=== PATIENT | female | born 1975 | race Asian ===

== ENCOUNTER 2024-11-04 14:10 | Emergency (ER) | payer MEDICAID, SELFPAY ==
--- NOTE | ~2024-11-04 | US_ITS ---
CLINICAL HISTORY: RUQ pain --- Additional Notes or Special Instructions: look at GB, pancreas, liver, ducts US abdomen limited Comparison: None provided Findings: The visualized pancreas is normal. The liver is normal in size. There are 2 calcifications within the right hepatic lobe. There is no intrahepatic bile duct dilatation. The common duct is 4 mm in diameter. There are 2 gallbladder polyps measuring 3 mm and 4 mm. No cholelithiasis. No gallbladder wall thickening. The right kidney is 10.7 cm in length. No ascites. IMPRESSION: 1. No acute process. 2. Gallbladder polyps. This document has been electronically signed by: Sheba Villanueva MD on 11/04/2024 16:01:24
--- NOTE | ~2024-11-04 | CT_ITS ---
CLINICAL HISTORY: R low chest pain, worse w inspiration CT chest without contrast Comparison: None provided Findings: The heart size is normal. The visualized thyroid and mediastinum are unremarkable. 15 mm calcified soft tissue density focus within the upper inner quadrant of the left breast. Calcified 6.4 mm focus within the right upper breast. No consolidation or effusion. Visualized portions of the upper abdomen demonstrate calcification in the right hepatic lobe posteriorly. No acute fractures. IMPRESSION: 1. No acute process. 2. Bilateral calcified breast lesions which could be further assessed with mammography, If clinically indicated. This document has been electronically signed by: Sheba Villanueva MD on 11/04/2024 19:43:21
--- NOTE | 2024-11-04 14:14 | ED_ITS ---
HPI - Abdominal Pain General Chief Complaint: Abdominal Pain Stated Complaint: pain on her right side ribs Time Seen by Provider: 11/04/24 14:28 Source: patient Mode of arrival: ambulatory Limitations: no limitations History of Present Illness ED Provider: mark leo np HPI narrative: Patient is a 49-year-old female who presents emergency department for evaluation, she has been experiencing right upper quadrant abdominal pain over the past 5-6 days that radiates to her back. Was evaluated by her primary care doctor 5 days ago, she was also experiencing anterior chest pain outpatient chest XR she states was normal, received a muscle relaxant prescription in addition to ibuprofen. She reports that the chest pain resolved about 2 days ago however the pain in the right upper quadrant/lower chest remains. Face typically worse in the morning when she wakes up, it does decrease in intensity throughout the day but notes it to be increasingly worse with deep inspiration. Presented to urgent care today for evaluation evidently had a normal chest x-ray obtained, and referred to emergency department for further evaluation. Denies fevers, chills, current chest pain, shortness of breath, nausea, vomiting, hematemesis, diarrhea, constipation, hematochezia, melena, dysuria, urinary frequency/urgency/hesitancy. Denies history of VTE/malignancy. No recent lower extremity redness pain or swelling. Related Data Allergies Allergy/AdvReac Type Severity Reaction Status Date / Time No Known Allergies Allergy Verified 11/04/24 14:17 Review of Systems Review of Systems Yes all other systems are reviewed and are negative PMFSH Past Medical History Attestation statement: The following information was validated with the patient. Source: old records reviewed Social History Social History Smoked in Last 30 Days: No Use of substances other than those prescribed or required for medical reasons: No Advance Directives: No Advance Directives Information Provided: No Do you have a plan to hurt others: No Plan Physical Exam ED Vital Signs: Vital Signs - 24 hr 11/04/24 14:15 11/04/24 16:11 11/04/24 18:18 Temperature 97.0 F 98.1 F 98.1 F Pulse Rate 79 66 71 Respiratory Rate 16 16 16 Blood Pressure 141/91 H 114/76 130/79 Pulse Oximetry 100 99 100 Oxygen Delivery Method Room Air Room Air Room Air BMI result Body Mass Index 23.2 Appearance: Alert.?Oriented to person, place and time. No acute distress.?Normal affect.?? Neck: Normal inspection.? Neck supple.?? CVS: Heart sounds normal. Normal heart rate and rhythm.? Pulses normal.?? Respiratory: No respiratory distress.? Lung sounds clear to auscultation bilaterally??pain upon palpation to the right anterior chest wall parasternal region. Abdomen: Soft with right upper quadrant tenderness upon palpation, positive Draper's sign. No rebound tenderness at McBurney's point. Negative psoas sign. Negative Rovsing sign. No CVAT. Normoactive bowel sounds. No pulsatile mass.?? Skin: Skin warm and dry.? Normal skin color.? Extremities: No lower extremity edema.? Neuro: Moves all extremities spontaneously. Sensation intact bilaterally. Ambulates with normal steady gait. Course Course Course Narrative: 11/04/24 1225 ELIANA Jaffe This is a Rapid Medical Examination (RME) performed by Jerry Pascal PA-C in triage. Full HPI, ROS, assessment and treatment plan per primary provider in the Main ED. Hx: 49 yo F here from for eval of RUQ pain 5-6 days. pain rad to back. saw PCP prescribed pain meds/ muscle without improvement. had CXR at today which was unremarkable. denies N/V/D. no previous abd surgeries. PE/vitals: +draper sign Plan: labs, US Reevaluation(s) Reevaluation #1: CBC is without leukocytosis anemia or thrombocytopenia. No electrolyte derangement. No MAKAYLA. LFTs and lipase all. High sensitive troponin below detectable limits, ECG nonischemic. Urinalysis without compelling evidence of infection or microscopic hematuria. Right upper quadrant ultrasound without evidence of cholelithiasis or cholecystitis. Perc negative, D-dimer <150, clinically no signs of DVT Pain is persistent, reviewed this with my attending Dr. Amato who recommends non-contrast CT AP for further evaluation at this time Time: 18:25 Reevaluation #2: Patient signed out to Jerry MONROY pending CT of the chest, if unremarkable anticipate discharge home outpatient follow-up with PCP and strict return precautions Time: 19:14 Reevaluation #3: 7:51 PM 11/04/2024 (Jerry MONROY): The patient was signed out to this provider at shift change, in summary the patient is a 49-year-old female presenting to the ED for evaluation of white upper quadrant pain radiating to the right flank and right breast for the past week. The patient was treated with muscle relaxer by her PCP without relief and presents to the ED for evaluation. In the ED the patient's laboratory evaluation is markedly reassuring, no leukocytosis, anemia, electrolyte abnormality, MAKAYLA, LFT abnormality, or elevated lipase. The patient's troponin is negative , EKG is nonischemic, D-dimer is negative, UA negative. The patient's ultrasound shows gallbladder polyps but no evidence of acute pathology. Patient is signed out pending CT dry scan of the chest. At this time the patient's CT chest has resulted and shows no acute process. The exact cause of the patient's discomfort is not entirely clear, however at this time there was no evidence of any acute emergent process requiring admission to the hospital or continued ED observation. The patient will be discharged to follow up with the primary care provider. Medical Decision Making Medical Decision Making MDM Narrative: Patient is a 49-year-old female past medical history of glaucoma, menopause discontinued use of transdermal estrogen patch 1 month ago who presents emergency department for evaluation of pain to the right upper quadrant of her abdomen radiating into the back increasing with deep inspiration no associated gastrointestinal symptoms. On examination she is tender beneath the lower costal margin in the right anterior chest/right upper quadrant, positive Draper sign. She is afebrile without tachycardia tachypnea or hypoxia. No respiratory distress. Symptoms concerning for fever jaundice that would suggest acute cholangitis, new but now consistent symptoms and has had 2 outpatient chest x- ray is without evidence of pneumonia by her account, wells score is low risk move her she has painful inspiration had any recent trauma injury your cough to suggest costochondritis. Has not had any relief with NSAIDs/muscle relaxant. Differential Diagnosis Differential Diagnoses: The differential diagnosis associated with the presentation includes (See narrative above) Admission/Observation Consideration of admission/observation: Escalation of care including admission/observation considered (See narrative above ) Lab Data [facility] Lab Attestation statement: I reviewed the patient's lab results. 11/04/24 14:29 11/04/24 14:29 Labs: Lab Results 11/04/24 11/04/24 11/04/24 Range/Units 14:29 15:32 15:35 WBC 6.3 (4.8-10.8) X10*3/uL RBC 4.49 (4.20-5.50) X10*6/uL Hgb 13.3 (12.0-16.0) g/dl Hct 40.5 (37.0-47.0) % MCV 90.2 (80.0-98.0) fL MCH 29.6 (27.0-33.0) pg MCHC 32.8 (31.0-35.0) g/dl RDW 13.3 (11.0-16.0) % Plt Count 206 (160-400) X10*3/uL MPV 10.7 (9.4-12.3) fL Immature Gran % (Auto) 0.2 (0.0-0.4) % Neut % (Auto) 59.8 (45-73) % Lymph % (Auto) 27.2 (20-40) % [place] % (Auto) 6.3 (2-11) % Eos % (Auto) 5.9 H (0-4) % Baso % (Auto) 0.6 (0-2) % Lymph # (Auto) 1.7 (1.2-4.9) X10*3/uL [place] # (Auto) 0.4 (0.1-1.2) X10*3/uL Eos # (Auto) 0.4 (0.0-0.4) X10*3/uL Baso # (Auto) 0.0 (0.0-0.2) X10*3/uL Abs Immat Gran (auto) 0.01 (0.00-0.03) X10*3/uL Absolute Neuts (auto) 3.8 (2.0-8.3) x10*3/uL Absolute Nucleated RBC 0.000 (0.0-0.012) X10*3/uL Nucleated RBC % (auto) 0.0 (0.0-0.2) /100WBC PT 11.6 (10.9-12.4) SEC INR 1.0 (0.9-1.1) D-Dimer High Sensitivty < 150 NG/ML Hold Blue Top SEE NOTE Sodium 138 (135-145) mmol/L Potassium 4.8 (3.3-5.1) mmol/L Chloride 104 (96-108) mmol/L Carbon Dioxide 27 (22-29) mmol/L Anion Gap 12 (12-20) BUN 16 (9-16) mg/dL Creatinine 0.63 (0.5-1.4) mg/dL Estim Creat Clear Calc 91.2 Estimated GFR > 60 Random Glucose 79 (60-115) mg/dL Calcium 9.4 (8.4-10.2) mg/dL Magnesium 2.2 (1.6-2.6) mg/dL Total Bilirubin 0.3 (0.0-1.0) mg/dL Direct Bilirubin 0.1 (0.0-0.5) mg/dL AST 27 (5-31) U/L ALT 20 (0-31) U/L Alkaline Phosphatase 82 (39-117) U/L Troponin I High Sens < 2.7 (<3.5-17.0) ng/L Total Protein 7.9 (6.5-8.0) g/dL Albumin 4.5 (3.5-5.0) g/dL Lipase 17 (8-78) U/L Urine Color Yellow Urine Appearance Clear Urine pH 6.5 (5.0-9.0) Ur Specific [place] <= 1.005 (1.005-1.025) Urine Protein Negative (Neg-Trace) mg/dL Urine Glucose (UA) Negative (Negative) mg/dL Urine Ketones Negative (Negative) mg/dL Urine Blood Negative (Negative) Urine Nitrite Negative (Negative) Ur Leukocyte Esterase Small (1+) H (Negative) Urine RBC 0-2 (0-2) /HPF Urine WBC 0-5 (0-5) /HPF Ur Squamous Epith Cells 0-2 (0-2) /HPF Urine Bacteria None Seen (None Seen) Hyaline Casts 0-2 (0-2) /LPF Radiology Impression Discussion of test interpretation with radiology: I have reviewed the radiologist's reading. Radiologist Impression: CT chest without contrast Comparison: None provided Findings: The heart size is normal. The visualized thyroid and mediastinum are unremarkable. 15 mm calcified soft tissue density focus within the upper inner quadrant of the left breast. Calcified 6.4 mm focus within the right upper breast. No consolidation or effusion. Visualized portions of the upper abdomen demonstrate calcification in the right hepatic lobe posteriorly. No acute fractures. IMPRESSION: 1. No acute process. 2. Bilateral calcified breast lesions which could be further assessed with mammography, If clinically indicated. This document has been electronically signed by: Sheba Villanueva MD on 11/04/2024 19:43:21 US abdomen limited Comparison: None provided Findings: The visualized pancreas is normal. The liver is normal in size. There are 2 calcifications within the right hepatic lobe. There is no intrahepatic bile duct dilatation. The common duct is 4 mm in diameter. There are 2 gallbladder polyps measuring 3 mm and 4 mm. No cholelithiasis. No gallbladder wall thickening. The right kidney is 10.7 cm in length. No ascites. IMPRESSION: 1. No acute process. 2. Gallbladder polyps. This document has been electronically signed by: Sheba Villanueva MD on 11/04/2024 16:01:24 Independent Historian Clinical information obtained from an independent historian. History obtained from or confirmed by: Spouse Discharge Plan Discharge Clinical Impression: Abdominal pain Qualifiers: Abdominal location: right upper quadrant Qualified Code(s): R10.11 - Right upper quadrant pain Patient Disposition: Home, Self-Care Instructions: Abdominal Pain (ED) Additional Instructions: Thank you for choosing [facility]'s Emergency Department for your care today. Thankfully your laboratory evaluation, EKG, chest CT, and right upper quadrant abdominal ultrasound today showed no evidence of any acute cardiac, pulmonary, coagulopathic (blood clot), infectious, metabolic, abdominal, or other dangerous cause for your symptoms. At this time there is no indication for admission to the hospital or continued ED observation, and it is safe to discharge you home. The exact cause of your symptoms is not entirely clear, we recommend you follow up with the primary care provider for additional investigation to the source of your symptoms. You may take alternating (staggered) doses of ibuprofen 600mg and Tylenol 1000mg every 4 hours as needed for any additional pain. Please stay well hydrated and get plenty of rest. Please follow up with your primary care physician for re-evaluation, additional management of your symptoms, and continued preventative care. If you do not have a primary care physician, please call the [facility] at [phone] to establish a new primary care physician. While waiting to establish your new primary care physician, you can call our [facility] at [phone] for non-emergency needs. Please return to the emergency department if you develop a severe or sudden change in your symptoms, a fever over 100.4 that does not improve with Tylenol or Ibuprofen, recurrent vomiting, or any other new or worsening symptoms or concerns. Print Language: Slovenian
[2024-11-04 14:15] VITALS: BP 141/91; PULSE 79; RESP 16; TEMP 36.1; O2SAT 100; BMI 23.2
[2024-11-04 14:35] LABS: MANUAL DIFF FLAG NO
[2024-11-04 14:38] LABS: Hematocrit 40.5 % (37.0-47.0); Hemoglobin 13.3 g/dl (12.0-16.0); Imm Gran Abs Auto 0.01 X10*3/uL (0.00-0.03); Imm Gran Pct Auto 0.2 % (0.0-0.4); Lymphocytes Absolute Auto 1.7 X10*3/uL (1.2-4.9); Mean Corpuscular HGB Conc 32.8 g/dl (31.0-35.0); Mean Corpuscular Hemoglobin 29.6 pg (27.0-33.0); Mean Corpuscular Volume 90.2 fL (80.0-98.0); NRBC Abs Auto 0.000 X10*3/uL (0.0-0.012); NRBC Pct Auto 0.0 /100WBC (0.0-0.2); Platelet Count 206 X10*3/uL (160-400); Red Blood Count 4.49 X10*6/uL (4.20-5.50); White Blood Count 6.3 X10*3/uL (4.8-10.8)
--- NOTE | 2024-11-04 14:39 | PC.NURSE ---
pt changed into hospital attire, 20g IV access established and labs obtained. Pt awaiting provider eval, call jauregui within reach
--- NOTE | 2024-11-04 14:52 | ECG_ITS ---
Test Reason : abdominal pain Blood Pressure : */* mmHG Vent. Rate : 65 BPM Atrial Rate : 65 BPM P-R Int : 148 ms QRS Dur : 88 ms QT Int : 422 ms P-R-T Axes : 18 33 26 degrees QTcB Int : 438 ms Normal sinus rhythm Normal ECG No previous ECGs available Referred By: Alta Goodman Electronically Signed By: Shorty Garcia
[2024-11-04 15:10] LABS: Alanine Aminotransferase 20 U/L (0-31); Albumin Level 4.5 g/dL (3.5-5.0); Alkaline Phosphatase 82 U/L (39-117); Anion Gap 12 (12-20); Aspartate Amino Transferase 27 U/L (5-31); Blood Urea Nitrogen 16 mg/dL (9-16); Calcium 9.4 mg/dL (8.4-10.2); Carbon Dioxide 27 mmol/L (22-29); Chloride 104 mmol/L (96-108); Creatinine Clr Calc Pharmacy 91.2; Estimated Glomerular Filt Rate > 60; Lipase 17 U/L (8-78); Magnesium 2.2 mg/dL (1.6-2.6); Potassium 4.8 mmol/L (3.3-5.1); Sodium 138 mmol/L (135-145); Total Protein 7.9 g/dL (6.5-8.0)
[2024-11-04 15:48] LABS: Appearance Urine Clear; Glucose Urine UA Negative (Negative); PH 6.5 (5.0-9.0); Specific Gravity - Urine <= 1.005 (1.005-1.025); UMIC TRIGGER UACC YES
[2024-11-04 16:11] VITALS: BP 114/76; PULSE 66; RESP 16; TEMP 36.7; O2SAT 99
[2024-11-04 16:14] LABS: INTERNATIONAL NORM RATIO 1.0 (0.9-1.1); Prothrombin Time 11.6 SEC (10.9-12.4)
[2024-11-04 16:17] LABS: UACC Culture Trigger YES
[2024-11-04 16:22] LABS: Troponin-I High Sensitivity < 2.7 ng/L (<3.5-17.0)
--- NOTE | 2024-11-04 16:47 | PC.NURSE ---
Pt's PT/INR/Ddimer pending for over 1 hour, called lab spoke to Philomena, results should be posted in minutes
[2024-11-04 16:49] LABS: D Dimer High Sensitivity < 150 NG/ML
[2024-11-04 18:18] VITALS: BP 130/79; PULSE 71; RESP 16; TEMP 36.7; O2SAT 100
[2024-11-04 20:07] VITALS: BP 130/79; PULSE 71; RESP 16; TEMP 36.7; O2SAT 100
== END 2024-11-04 20:08 | disposition home or self-care (01) ==
PROVIDERS: Nurse Practitioner Family; Physician Assistant Medical; Emergency Provider Emergency Medicine
DX: R10.11 Right upper quadrant pain (principal); R07.89 Other chest pain; K82.4 Cholesterolosis of gallbladder
CPT/HCPCS: 36415; 71250; 76705; 80048; 80076; 81001; 81003; 83690; 83735; 84484; 85025; 85379; 85610; 87086; 93005; 99284; 99285

== ENCOUNTER → 2024-11-04 14:17 | Outpatient (BNV) | payer MEDICAID, SELFPAY | PROVIDERS: Emergency Provider Emergency Medicine; Visit Provider Radiology Diagnostic Radiology | DX: R07.1 Chest pain on breathing (principal); R93.2 Abnormal findings on diagnostic imaging of liver and biliary tract | CPT/HCPCS: 71250; 76705 ==

== ENCOUNTER → 2024-11-04 14:52 | Outpatient (BNV) | payer MEDICAID, SELFPAY | PROVIDERS: Emergency Provider Emergency Medicine; Visit Provider Internal Medicine Cardiovascular Disease | DX: R10.11 Right upper quadrant pain (principal) | CPT/HCPCS: 93010 ==